=== PATIENT | female | born 1970 | race Caucasian/White ===

== ENCOUNTER 2024-05-21 15:35 | Observation (INO) ==
[2024-05-21] MEDS: NOZIN NASAL SANITIZER TP ONE (10:41)
[2024-05-21] MEDS: NS 1,000 ML IV 1,000 ML ONE (10:42)
[2024-05-21 11:30] VITALS: BMI 46.9
[2024-05-21] MEDS: DUONEB 0.5 MG/3 MG (3 mL) NEB ONE (11:35)
[2024-05-21] MEDS: NS 100 ML IV 100 ML ONE (12:33)
[2024-05-21] MEDS: ANCEF VIAL 1 GRAM ONE (12:33)
[2024-05-21] MEDS: PEPCID 20 MG VIAL ONE (12:36)
[2024-05-21] MEDS: BETADINE SOLN ONE (12:36)
[2024-05-21] MEDS: ZOFRAN INJ 4 MG VIAL ONE (12:36)
[2024-05-21] MEDS: REGLAN INJ 10 MG VIAL ONE (12:36)
[2024-05-21] MEDS: DIPRIVAN VIAL 20 ML ONE (12:36)
[2024-05-21] MEDS: FENTANYL VIAL INJ 100 mcg ONE (12:36)
[2024-05-21] MEDS: DECADRON INJ ONE (12:36)
[2024-05-21] MEDS: VERSED ONE (12:36)
[2024-05-21] MEDS: VANCOMYCIN HCL ONE (13:03)
[2024-05-21] MEDS: MARCAINE 0.25% INJ ONE (13:03)
[2024-05-21] MEDS: TOBRAMYCIN SULFATE ONE (13:03)
[2024-05-21] MEDS: ROBINUL ONE (13:28)
[2024-05-21] MEDS: DILAUDID INJ ONE (13:36)
[~2024-05-21 15:35] MED LIST: BENADRYL INJ 50 MG VIAL IVP PRN; DILAUDID INJ IVP PRN; KETAMINE HCL ONE; TYLENOL 325 MG TAB PO PRN; ULTANE GAS IN ONE; XYLOCAINE 2 % (PLAIN) ONE; ZOFRAN INJ 4 MG VIAL IVP PRN
[2024-05-21] MEDS: PERCOCET TAB 5/325 MG PO PRN (16:53)
[2024-05-21] MEDS: NOZIN NASAL SANITIZER TP SCH (20:48)
[2024-05-21] MEDS: COLACE CAP 100 MG PO SCH (20:48)
[2024-05-21] MEDS: DILAUDID INJ IVP PRN (20:49)
[2024-05-22] MEDS: NS 1,000 ML IV 1,000 ML IV SCH (04:44)
[2024-05-22 05:02] VITALS: O2SAT 98
[2024-05-22 05:52] LABS: CALCIUM 8.9 mg/dL (8.5-10.1); CARBON DIOXIDE 25.4 mmol/L (21-32); CREATININE 1.23 mg/dL (0.55-1.02); POTASSIUM 4.5 mmol/L (3.5-5.1)
[2024-05-22] MEDS: STERILE WATER IRRIGATION IR ONE (08:35)
[2024-05-22] MEDS: LOVENOX INJ 40 MG SYR SC SCH (08:38)
[2024-05-22] MEDS ORDERED: DESVENLAFAXINE SUCCINATE 100 MG PO SCH (09:00)
[2024-05-22] MEDS ORDERED: DESVENLAFAXINE SUCCINATE 50 MG PO SCH (09:00)
[2024-05-22] MEDS ORDERED: ACTOS PO SCH (09:00)
[2024-05-22] MEDS ORDERED: SOLRIAMFETOL 150 MG PO SCH (09:00)
[2024-05-22 09:48] VITALS: RESP 19
[2024-05-22 12:22] VITALS: BP 159/70; PULSE 65; TEMP 97.9
== END 2024-05-22 11:50 | disposition home or self-care (01) ==
LOC: MED/SURG
PROVIDERS: ADMIT Obstetrics & Gynecology Obstetrics; ATTEND Obstetrics & Gynecology Obstetrics
PROC: APEXFIX (2024-05-21 16:00)
PROC: DEBRIDE (2024-05-21 16:00)